=== PATIENT | female | born 1930 | race Caucasian/White ===

== ENCOUNTER 2016-09-16 16:18 | Inpatient (IN) | payer MEDICARE, OTHER ==
[~2016-09-16] VITALS: Ht 165.1 cm; Wt 83.7 kg
[2016-09-16 17:36] LABS: HEMOGLOBIN 10.5 gm/dl (12.3-15.3); RED BLOOD COUNT 3.52 M/UL (4.00-5.10); WHITE BLOOD COUNT 7.5 K/UL (4.5-11.0)
[2016-09-16] MEDS ORDERED: ASPIRIN81 MG PO (23:01)
[2016-09-16] MEDS ORDERED: LIPITOR TAB 1010 MG PO (23:01)
[2016-09-16] MEDS ORDERED: COLACE 100MG C100 MG PO (23:02)
[2016-09-16] MEDS ORDERED: CARDIZEM60 MG PO (23:02)
[2016-09-16] MEDS ORDERED: NEURONTIN 300300 MG PO (23:03)
[2016-09-16] MEDS ORDERED: NEURONTIN 100100 MG PO (23:04)
[2016-09-16] MEDS ORDERED: IPRAT-ALBUT 0.5-3 ML INH (23:04)
[2016-09-16] MEDS ORDERED: OMEPRAZOLE20 M1 PO (23:05)
[2016-09-16] MEDS ORDERED: SYMBICORT 80-10.2 GM INH (23:06)
[2016-09-16] MEDS ORDERED: VITAMIN D250000 UNIT PO (23:07)
[2016-09-16] MEDS ORDERED: SINGULAIR10 MG PO (23:08)
[2016-09-16] MEDS ORDERED: ZYRTEC10 M3 PO (23:08)
[2016-09-16] MEDS ORDERED: PREDNISONE 10 M10 MG PO (23:09)
[2016-09-16] MEDS ORDERED: DETROL LA4 MG PO (23:11)
[2016-09-16] MEDS ORDERED: OXYCODONE-ACET1 EAC1 PO (23:12)
[2016-09-17 04:52] LABS: HEMOGLOBIN 11.4 gm/dl (12.3-15.3); RED BLOOD COUNT 3.86 M/UL (4.00-5.10); WHITE BLOOD COUNT 6.5 K/UL (4.5-11.0)
[2016-09-17 05:17] LABS: BUN/CREATININE RATIO 16 (0-10)
[2016-09-18 04:39] LABS: HEMOGLOBIN 9.9 gm/dl (12.3-15.3)
[2016-09-18 04:44] LABS: RED BLOOD COUNT 3.25 M/UL (4.00-5.10); WHITE BLOOD COUNT 8.9 K/UL (4.5-11.0)
[2016-09-18 04:59] LABS: BUN/CREATININE RATIO 18 (0-10)
[2016-09-19 05:56] LABS: HEMOGLOBIN 10.2 gm/dl (12.3-15.3); RED BLOOD COUNT 3.44 M/UL (4.00-5.10); WHITE BLOOD COUNT 8.9 K/UL (4.5-11.0)
[2016-09-19 06:09] LABS: BUN/CREATININE RATIO 15 (0-10)
[2016-09-20] MEDS ORDERED: LEVAQUIN750 MG PO (10:25)
== END 2016-09-20 13:22 | disposition home or self-care (01) | DRG 189 ==
LOC: ER1 16:18 → ZEROF 20:08 → MED SURG 4 20:08
PROVIDERS: Emergency Medicine; Internal Medicine; ADMIT Family Medicine
DX: J96.21 Acute and chronic respiratory failure with hypoxia (principal); J18.9 Pneumonia, unspecified organism; G93.49 Other encephalopathy; J44.0 Chronic obstructive pulmonary disease with (acute) lower respiratory infection; B37.49 Other urogenital candidiasis; J96.22 Acute and chronic respiratory failure with hypercapnia; R00.0 Tachycardia, unspecified; F17.210 Nicotine dependence, cigarettes, uncomplicated; Y95 Nosocomial condition; I10 Essential (primary) hypertension; M06.9 Rheumatoid arthritis, unspecified; I50.9 Heart failure, unspecified; Z86.79 Personal history of other diseases of the circulatory system; Z99.81 Dependence on supplemental oxygen
CPT/HCPCS: 36415; 36600; 70450; 71010; 80048; 80053; 80202; 80307; 81001; 82140; 82550; 82553; 82607; 82803; 83605; 83735; 83874; 83880; 84439; 84443; 84484; 85025; 85027; 85610; 85730; 87040; 87081; 87086; 93005; 94640; 94664; 96365; 96375; 97110; 97116; 97530; 99285; J0456; J0696; J1335; J1650; J2930; J3370; J7030; J7050; J7070